=== PATIENT | male | born 1950 ===

== ENCOUNTER → 2019-11-02 | Outpatient (CLI) | payer MEDICARE, OTHER | END | disposition home or self-care (01) | LOC: RAD 13:33 | PROVIDERS: ATTEND Nurse Practitioner Family | DX: M51.35 Other intervertebral disc degeneration, thoracolumbar region (principal); M50.30 Other cervical disc degeneration, unspecified cervical region; M48.02 Spinal stenosis, cervical region; M25.78 Osteophyte, vertebrae; M48.05 Spinal stenosis, thoracolumbar region | CPT/HCPCS: 72141; 72146; 72148 ==